=== PATIENT | male | born 1985 | race Caucasian/White ===

== ENCOUNTER 2021-12-06 13:23 | Outpatient (CLI) | payer OTHER ==
[2021-12-06] MEDS ORDERED: ALBUTEROL 1 PUFF INH STA (15:35)
== END 2021-12-06 13:24 | disposition home or self-care (01) ==
LOC: RT 13:23
PROVIDERS: ATTEND Physician Assistant
DX: R05.9 Cough, unspecified (principal); R06.02 Shortness of breath; R91.8 Other nonspecific abnormal finding of lung field
CPT/HCPCS: 94060; 94727